=== PATIENT | female | born 1990 | race Two or more races ===

== ENCOUNTER 2024-04-25 04:42 | Inpatient (IN) | payer MEDICAID, SELFPAY ==
[2024-04-25] VITALS (19 sets, daily range): BP systolic 104–148; BP diastolic 66–101; PULSE 81–102; RESP 15–23; TEMP 36.5–37; O2SAT 96–99; BMI 33.5
[2024-04-25 06:01] LABS: Basophils # (Auto) 0.1 Thou/mm3 (0.0-0.2); Basophils % (Auto) 1 % (0-2.5); Eosinophils # (Auto) 0.2 Thou/mm3 (0.0-0.5); Eosinophils % (Auto) 1 % (0-10); Hematocrit 38.5 % (36.0-46.0); Hemoglobin 13.3 g/dL (12.0-16.0); Immature Granulocytes % (Auto) 2 % (0-0); Immature Granulocytes Auto 0.26 Thou/mm3 (0.00-0.00); Lymphocytes # (Auto) 2.7 Thou/mm3 (1.0-4.8); Lymphocytes % (Auto) 18 % (10-50); Mean Corpuscular HGB Conc 34.5 g/dl (31.0-37.0); Mean Corpuscular Hemoglobin 29.6 pg (25.0-35.0); Mean Corpuscular Volume 86 fL (80-100); Monocytes # (Auto) 1.1 Thou/mm3 (0.0-0.8); Monocytes % (Auto) 8 % (0-12); Neutrophils # (Auto) 10.7 Thou/mm3 (1.8-7.7); Neutrophils % (Auto) 71 % (37-80); Nucleated Red Blood Cell % 0 /100 WBC (0); Platelet Count 165 Thou/mm3 (140-440); RDW Standard Deviation 45.8 fL (36.4-46.3); Red Blood Count 4.49 Miln/mm3 (4.00-5.20); White Blood Count 15.1 Thou/mm3 (3.6-11.0)
[2024-04-25 06:33] LABS: Amphetamine/Metham Scrn,Ur OB Negative (Negative); Benzoylecgonine Screen, Ur OB Negative (Negative); Opiate Screen,Urine OB Negative (Negative); THC Screen,Urine OB Negative (Negative)
[2024-04-25 06:54] LABS: Syphilis Nonreactive (Nonreactive)
[2024-04-25] MEDS: CITRIC ACID/SODIUM CITR 15 ML UDC (BICITRA) 30 ML PO (07:12)
[2024-04-25] MEDS: ceFAZolin/D5W 2 GM IV 2 GM/100 ML BAG IV (07:13)
[2024-04-25] MEDS: FAMOTIDINE INJ 10 MG/ML VIAL 2 ML 20 MG IV (07:13)
--- NOTE | 2024-04-25 07:39 | ESHP_ITS ---
Documentation for date of: 04/25/24 OB Labor/Induct. HPI History of Present Illness History of sections: Yes (x2) History of present illness: 23-year-old 3 para 2-0-0-2 at 37 weeks and 0 days admitted for repeat low-transverse . Patient had previous 2 C-sections. Denies any contractions, leaking, bleeding. History of Present Dating criteria: LMP confirmed by 2nd trimester US Adequate Care: No Labs Labs: Negative: Hepatitis B, HIV, Chlamydia and Gonorrhea and Unknown: Group Beta Strep Narrative: NIPT within normal limits Past Medical History Surgical History SURGICAL: Positive Section (x2) Meds Home Medications and Allergies Home Medications ?Medication ?Instructions ?Recorded ?Confirmed ?Type vits no.130-ferrous fum tab 04/25/24 History 27 mg iron-folic acid 800 mcg tablet ( Vitamin) Allergies Allergy/AdvReac Type Severity Reaction Status Date / Time No Known Allergies Allergy Verified 04/25/24 05:15 OB Exam Physical Exam Vital signs: Temp Pulse Resp BP Pulse Ox 98.6 F 98 16 148/76 H 98 04/25/24 05:22 04/25/24 07:07 04/25/24 05:22 04/25/24 07:07 04/25/24 07:17 Constitutional Constitutional: no acute distress Routine HEENT Exam Head: Present normocephalic and atraumatic Eye: Present EOMI and PERRL ENT: Present mucous membranes moist Routine Neck Exam Neck: Present supple and trachea midline Routine Cardiovascular Exam Cardiovascular: Present RRR Routine Abdominal Exam Abdominal: Present soft and normoactive bowel sounds Detailed Labor and Delivery Exam Comments: Category 1 heart tones, occasional contractions Routine Extremities Exam Extremities: Present full ROM Routine Skin Exam Skin: Present intact, dry and warm Routine Neurological Exam Neurological: Present alert, oriented X3 and CN II-XII intact Routine Psychiatric Exam Psychiatric: Present normal affect and normal thought process OB Results Labs 04/25/24 05:45 Labs: Short CBC 04/25/24 Range/Units 05:45 WBC 15.1 H (3.6-11.0) Thou/mm3 Hgb 13.3 (12.0-16.0) g/dL Hct 38.5 (36.0-46.0) % Plt Count 165 (140-440) Thou/mm3 Impressions Impression: 33-year-old 3 para 2-0-0-2 at 37 weeks admitted for repeat low- transverse Previous x 2 NIPT within normal Anatomy within normal, posterior placenta OB Assessment & Plan Additional Plan Additional Plan Comment: Repeat low-transverse Antibiotic prophylaxis DVT prophylaxis
[2024-04-25] MEDS: ONDANSETRON INJ 2 MG/ML INJ 2 ML 4 MG IV ×2 (09:25→17:18)
[2024-04-25] MEDS: OXYTOCIN in NS 20 UNIT/1,000 ML BAG IV ×2 (09:26→18:51)
[2024-04-25] MEDS: KETOROLAC INJ 30 MG/ML VIAL IVP ×2 (09:26→17:18)
[2024-04-25 13:57] LABS: Basophils % (Auto) 0 % (0-2.5); Eosinophils # (Auto) 0.1 Thou/mm3 (0.0-0.5); Eosinophils % (Auto) 0 % (0-10); Hematocrit 38.3 % (36.0-46.0); Hemoglobin 12.9 g/dL (12.0-16.0); Immature Granulocytes % (Auto) 1 % (0-0); Immature Granulocytes Auto 0.18 Thou/mm3 (0.00-0.00); Lymphocytes # (Auto) 1.1 Thou/mm3 (1.0-4.8); Lymphocytes % (Auto) 6 % (10-50); Mean Corpuscular HGB Conc 33.7 g/dl (31.0-37.0); Mean Corpuscular Hemoglobin 29.5 pg (25.0-35.0); Mean Corpuscular Volume 87 fL (80-100); Monocytes # (Auto) 1.3 Thou/mm3 (0.0-0.8); Monocytes % (Auto) 7 % (0-12); Neutrophils # (Auto) 15.2 Thou/mm3 (1.8-7.7); Neutrophils % (Auto) 85 % (37-80); Nucleated Red Blood Cell % 0 /100 WBC (0); Platelet Count 145 Thou/mm3 (140-440); RDW Standard Deviation 45.8 fL (36.4-46.3); Red Blood Count 4.38 Miln/mm3 (4.00-5.20); White Blood Count 17.9 Thou/mm3 (3.6-11.0)
--- NOTE | 2024-04-25 14:18 | PD.LDDELS ---
Data (Gregory) Data Hx Section: Yes (x2) : 3 Para: 2 Term: 2 : 0 : 1 Delivery Data (Gregory) Labor Data ROM Date: 04/25/24 ROM Time: 08:04 Rupture Type: AROM Delivery Data Labor Onset Stage 1 Date: 04/25/24 Labor Onset Stage 1 Time: 08:05 Labor Onset Stage 2 Date: 04/25/24 Labor Onset Stage 2 Time: 08:05 Delivery Date: 04/25/24 Delivery Time: 08:05 Gestational age (weeks): 39 Gestational age (days): 0 Placenta Delivery Date: 04/25/24 Placenta Delivery Time: 08:06 Delivered by: Mireya Mckeon Delivery nurse: Alecia Sanchez Other staff at delivery: Nursery Nurse Other staff at delivery: Kristen Donohue Delivery Method Delivery: Delivery Type: Repeat Anesthesia Type Primary Anesthesia: Spinal Placenta Placenta Delivery: Manual Cord Sample: Cord Blood Obtained EBL Estimated blood loss (ml): 400 Umbilical Cord Umbilical Vessels: 3 Nuchal Cord: None Body Cord: None [place] Data (Gregory) Data Gender: Male Weight Grams: 3625 1 Minute Total: 9 5 Minute Total: 9
--- NOTE | 2024-04-25 14:24 | PD.GYNPROC ---
Operative Note - [employer] Procedure Date of procedure: 04/25/24 Procedure Performed: repeat C section Indication: previous Csection x2 Pre-Op diagnosis: same Post-Op diagnosis: same Anesthesia type: Spinal Procedure description: Informed consent was obtained and the patient was taken to the operating room.? Identity was confirmed by double identifiers and she was placed on the operating table.The abdomen and perineum were prepped in the usual sterile fashion and a Ríos catheter was placed to continuous drainage.? Sterile drapes were applied.??A Pfannenstiel skin incision was made with a scalpel and carried to the subcutaneous fat up to the rectus fascia.? The rectus fascia was incised on either side of the midline and the incisions were extended bilaterally.? The fascia was gently dissected off the ventral surface of the rectus muscle both superiorly and inferiorly. Carefully a peritioneal window craeted hysterotomy incision made and extended bluntly with finger. Rupture of membranes revealed clear fluid. The baby was found in cephalic position , delivered via vertex. The umbilical cord , was doubly clamped, divided and the infant was handed over to the waiting team.? placenta delivered by controlled cord traction . The interior of the uterus was now thorougly cleaned of all blood and debris and membranes.? Next the? hysterotomy was closed using 0 vicryl suture in double layers. Once the repair was completed the hysterotomy was inspected, was noted to be adequately hemostatic . Muscle oozing stopped by bovie. The rectus fascia was repaired using Vicry 0 in a running fashion.? The subcutaneous layer was now, approximated with 3-0 vicryl in double layers.? All bleeding points were cauterized using the Bovie.?The skin was closed using 4-0 Monocryl in a subcuticular fashion.? The skin was cleaned and a sterile dressing was applied. The patient was now undraped, the abdomen and back were thoroughly cleaned and she was now transferred to the recovery room in a stable Estimated blood loss (ml): 400 Surgical staff Operation Date: 04/25/24 07:45 Case Staff Anesthesiologist: Aldo Rodriguez RN First Assistant: Magaly Paez Diagnosis Problem List Completed Was Problem List Reviewed/Reconciled?: Yes
[2024-04-26 00:28] VITALS: BP 102/65; PULSE 84; RESP 19; TEMP 36.9; O2SAT 96
[2024-04-26 03:30] VITALS: BP 115/75; PULSE 76; RESP 20; TEMP 36.7; O2SAT 96
[2024-04-26] MEDS: IBUPROFEN TAB 400 MG TABLET 800 MG PO ×2 (03:44→16:39)
[2024-04-26 07:40] VITALS: BP 100/67; PULSE 73; RESP 18; TEMP 36.8; O2SAT 97
--- NOTE | 2024-04-26 09:34 | ESPR_ITS ---
Subjective Subjective Interval history: Patient doing well overall. Pain is controlled. She is ambulating no lightheadedness/dizziness. Voiding spontaneously since thompson was removed, no issues. Tolerating regular diet without nausea/vomiting. Not yet passing gas. No fevers/chills, no CP/SOB. Exam Vital Signs Temp Pulse Resp BP Pulse Ox O2 Del Method 98.2 F 73 18 100/67 97 Room Air 04/26/24 07:40 04/26/24 07:40 04/26/24 07:40 04/26/24 07:40 04/26/24 07:40 04/26/24 07:40 Narrative Exam General: well developed, well nourished, no acute distress, conversant Cardiac: normal heart rate Lungs: breathing without distress Abdomen: soft, post-gravid, non-tender, no rebound or guarding, paper tape dressing removed, pfannenstiel incision covered by dry/clean/intact prineo bandage. Incision well reapproximated. No erythema, drainage or induration. Fundus firm at u-2cm. Extremities: no pain with palpation of calves, trace edema of BLE Objective Labs 04/25/24 13:30 Labs: Laboratory Results - last 24 hr 04/25/24 13:30 WBC 17.9 H RBC 4.38 Hgb 12.9 Hct 38.3 MCV 87 MCH 29.5 MCHC 33.7 RDW Std Deviation 45.8 Plt Count 145 Neut % (Auto) 85 H Lymph % (Auto) 6 L [place] % (Auto) 7 Eos % (Auto) 0 Baso % (Auto) 0 Neut # (Auto) 15.2 H Lymph # (Auto) 1.1 [place] # (Auto) 1.3 H Eos # (Auto) 0.1 Baso # (Auto) 0.0 Immature Gran # (Auto) 0.18 H Absolute Nucleated RBC 0.00 Immature Gran % 1 H Nucleated RBC % 0 Assessment & Plan Problem List (1) delivery delivered: Status: Acute Assessment and plan: Patient is a 33yo [id number] s/p uncomplicated RLTCS after presenting in labor, doing well on POD 1. Vitals wnl, benign exam. Hemodynamically stable with no evidence of infection. Appropriate change in H/H. Plan: -Continue routine /post-op care -Awaiting passage of gas, encouraged ambulation to assist with this -Regular diet -motrin 800mg PO Q8hr, norco 5/325mg PO Q6hr prn pain -Encourage ambulation and use of IS -Anticipate discharge home tomorrow if meeting all milestones (2) History of section: Status: Acute Time Spent With Patient Time: Total time spent is greater than 50% in coordination of care (as documented) at patient's floor/unit and/or counseling patient:
[2024-04-26 11:20] VITALS: BP 106/71; PULSE 76; RESP 17; TEMP 36.6; O2SAT 97
[2024-04-26] MEDS: ACETAMINOPHEN 325 MG TABLET 650 MG PO (11:22)
[2024-04-26] MEDS: SIMETHICONE 80 MG CHEW PO (18:22)
[2024-04-26 19:40] VITALS: BP 111/71; PULSE 81; RESP 19; TEMP 36.6; O2SAT 96
[2024-04-27 03:52] VITALS: BP 109/72; PULSE 79; RESP 20; TEMP 36.7; O2SAT 95
[2024-04-27] MEDS: IBUPROFEN TAB 400 MG TABLET 800 MG PO (03:54)
[2024-04-27] MEDS: SIMETHICONE 80 MG CHEW PO (07:45)
[2024-04-27 07:50] VITALS: BP 105/69; PULSE 74; RESP 18; TEMP 36.7; O2SAT 97
--- NOTE | 2024-04-27 09:09 | PD.LDDS ---
DS: Providers Provider Date of admission: 04/25/24 04:42 Primary care physician: Naun Kerr MD Admitting Provider: Mireya Mckeon MD Attending Provider on Admission: Mireya Mckeon MD Consults: 04/25/24 07:41 Referral Routine Comment: Attending Provider on DC: Claudia uYen MD Discharging Provider: Claudia Yeun MD DS: Diagnosis Discharge Diagnosis (1) History of section: Status: Acute (2) delivery delivered: Status: Acute Problem List Completed Was Problem List Reviewed/Reconciled?: Yes Summary/Hosp Course Brief History: 23-year-old 3 para 2-0-0-2 at 37 weeks and 0 days admitted for repeat low-transverse . Patient had previous 2 C-sections. Denies any contractions, leaking, bleeding. She is postop day 2 s/p uncomplicated section. She has had an uncomplicated post-operative course, meeting all milestones and feels ready for discharge home. She is ambulating without lightheadedness, tolerating regular diet no n/v, spontaneously voiding without issue. She has no chest pain or shortness of breath. No fevers or chills. Pain well controlled. Vitals normal, benign exam. Hemodynamically stable with no evidence of infection. Post-op Hgb 12.9. Peripartum Data Procedures: Procedures Operation Date: 04/25/24 07:45 Actual Procedure Side Surgeon p in OB Mireya Mckeon MD Status at Discharge Functional status at discharge: independent ambulation Overall status at discharge: patient is back to baseline Time Spent with Patient Time attestation: Total time spent providing and/or coordinating discharge services: Exam Vital Signs Temp Pulse Resp BP Pulse Ox O2 Del Method 98.0 F 74 18 105/69 97 Room Air 04/27/24 07:50 04/27/24 07:50 04/27/24 07:50 04/27/24 07:50 04/27/24 07:50 04/27/24 07:50 Narrative Exam General: well developed, well nourished, no acute distress, conversant Cardiac: normal heart rate Lungs: breathing without distress Abdomen: soft, post-gravid, non-tender, no rebound or guarding, pfannenstiel incision covered by dry/clean/intact prineo bandage. Incision well reapproximated. No erythema, drainage or induration. Fundus firm at u-2cm. Extremities: no pain with palpation of calves, trace edema of BLE Discharge Plan Plan Patient Disposition: HOME (Self Care) Patient condition on transfer: Stable Prescriptions/Referrals Prescriptions/Med Rec: New ibuprofen 800 mg tablet 800 mg PO Q8H PRN (Reason: See Comments) 10 Days Qty: 30 0RF hydrocodone-acetaminophen 5-325 mg Tablet 1 tab PO Q6HR MDD 4 tablets PRN (Reason: Patient rated pain 9 to 10) Qty: 10 0RF polyethylene glycol 3350 [ClearLax] 17 gram powder in packet 17 g PO QDAY Qty: 14 0RF Continued Vitamin 27 mg iron- 800 mcg tablet Referrals: Naun Kerr MD [Primary Care Provider] - Patient/Caregiver Discharge Instructions Discharge Activity: activity as tolerated and other Other Discharge Activity Instructions:: Follow up in clinic in 1 week for incision check, call for appointment Vaginal rest and no heavy lifting more than 10 pounds for 6 weeks. Do not submerge incision, keep clean and dry. No driving while taking narcotic. Other Discharge Diet Instructions: Regular Education Materials: Breast Care After , After a , C Section Dc Print Language: Kiswahili Activity Restrictions/Additional Instructions: Follow up in clinic in 1 week for incision check, call for appointment Stand Alone Forms: Millie Award Info., Patient Portal Info Letter Discharge Order Discharge Orders: Discharge (Routine); Ordered 04/27/24 Ordered By: Claudia Yuen Planned Discharge Date 04/27/24
--- NOTE | 2024-04-27 10:41 | PC.NURSE ---
Clear by social services specialist.
[2024-04-27] MEDS: ACETAMINOPHEN 325 MG TABLET 650 MG PO (10:44)
== END 2024-04-27 11:50 | disposition home or self-care (01) | DRG 540 ==
LOC: S4SX 05:38 → S4NX 09:05
PROVIDERS: Admitting Provider Student in an Organized Health Care Education/Training Program; PCP Family Medicine; Visit Provider Student in an Organized Health Care Education/Training Program
PROC: 10D00Z1 Extraction of Products of Conception, Low, Open Approach (ICD-10-PCS; CPT 59514; principal; 2024-04-25 07:30)
DX: O34.211 Maternal care for low transverse scar from previous cesarean delivery (principal); Z37.0 Single live birth; Z3A.39 39 weeks gestation of pregnancy
CPT/HCPCS: 36415; 59409; 80307; 85025; 86780; 86850; 86900; 86901; 94762; A4649; J0689; J1885; J2274; J2405; J2590; J3490; A9270; J2270